=== PATIENT | male | born 1945 | race Two or more races ===

== ENCOUNTER 2023-12-26 05:15 | Day surgery (SDC) | payer OTHER ==
[~2023-12-26] VITALS: Ht 165.1 cm; Wt 69.9 kg
[~2023-12-26 05:15] MED LIST: ALLERGY RELIEF5 MG PO; ALTACE2.5 MG PO; CHILDREN'S ASPI81 MG PO; DETROL LA4 MG PO; LEVO-T150 MCG PO; MONTELUKAST SOD10 MG PO; NORVASC5 MG PO; VITAMIN D310 MCG/1 M PO; ZOCOR20 MG PO
[2023-12-26] MEDS ORDERED: CLINDAMYCIN PHOSPHATE 150 MG/ML (900mg) ONE (06:15)
[2023-12-26] MEDS ORDERED: BUPIVACAINE HCL/MPF 0.5% 30ML VIAL ONE (06:59)
[2023-12-26] MEDS ORDERED: HEPARIN SODIUM,PORCINE 500 UNITS/5 ML VIAL IV ONE (07:22)
[2023-12-26] MEDS ORDERED: LIDOCAINE HCL 1%/EPINEPHRINE 20ML VIAL IJ ONE ×2 (07:50→08:30)
[2023-12-26] MEDS ORDERED: NEOMYCIN/BACITRACIN/POLYMYXINB 14 G TUBE TOP ONE (08:30)
[2023-12-26] MEDS ORDERED: ISOPROPYL ALCOHOL 30 ML OUNCE TOP ONE (08:30)
[2023-12-26] MEDS ORDERED: BUPIVACAINE HCL 30 ML VIAL IJ ONE (08:30)
[2023-12-26] MEDS ORDERED: CLINDAMYCIN PHOSPHATE 150 MG/ML (900mg) IV SCH (08:30)
== END 2023-12-26 10:50 | disposition home or self-care (01) ==
LOC: CIR.AMB 05:15
PROVIDERS: ATTEND Surgery Surgery of the Hand
DX: M67.843 Other specified disorders of tendon, right hand (principal); Z88.0 Allergy status to penicillin